=== PATIENT | female | born 1980 | race Caucasian/White ===

== ENCOUNTER 2018-08-19 10:29 | Emergency (ER) | payer SELFPAY ==
[2018-08-19 11:55] LABS: ABSOLUTE EOSINOPHILS # (AUTO) 0.1 10^3/uL (0.0-0.6); ABSOLUTE LYMPHOCYTES (AUTO) 1.8 10^3/uL (0.5-4.7); ABSOLUTE MONOCYTES (AUTO) 0.4 10^3/uL (0.1-1.4); ABSOLUTE NEUT (AUTO) 3.9 10^3/uL (1.7-8.2); APPEARANCE,URINE SLIGHTLY-CLOUDY; BASOPHILS % (AUTO) 0.4 % (0-2); BILIRUBIN,URINE NEGATIVE (NEGATIVE); COLOR,URINE YELLOW; EOSINOPHILS % (AUTO) 1.3 % (0-6); GLUCOSE, URINE NEGATIVE (NEGATIVE); HEMATOCRIT 38.1 % (36.0-47.0); HEMOGLOBIN 12.5 g/dL (12.0-15.5); KETONES,URINE NEGATIVE (NEGATIVE); LEUKOCYTE ESTERASE,URINE NEGATIVE (NEGATIVE); LYMPHOCYTES % (AUTO) 28.8 % (13-45); MEAN CORPUSCULAR HEMOGLOBIN 25.9 pg (27.0-33.4); MEAN CORPUSCULAR HGB CONC 32.9 g/dL (32.0-36.0); MEAN CORPUSCULAR VOLUME 79 fl (80-97); MONOCYTES % (AUTO) 6.1 % (3-13); NITRITE,URINE NEGATIVE (NEGATIVE); PLATELET COUNT 178 10^3/uL (150-450); PROTEIN,URINE NEGATIVE (NEGATIVE); RED BLOOD COUNT 4.84 10^6/uL (3.72-5.28); RED CELL DISTRIBUTION WIDTH 17.9 % (11.5-14.0); SEGMENTED NEUTROPHILS % (AUTO) 63.4 % (42-78); TOTAL CELLS COUNTED % (AUTO) 100 %; URINE SPECIFIC GRAVITY 1.017; UROBILINOGEN,URINE NEGATIVE mg/dL (<2.0); WHITE BLOOD COUNT 6.2 10^3/uL (4.0-10.5)
[2018-08-19] MEDS ORDERED: BENZTROPINE MESYLATE 1 MG TABLET PO ONE (12:01)
[2018-08-19 12:10] LABS: URINE AMPHETAMINES SCREEN NEGATIVE; URINE BARBITURATES SCREEN NEGATIVE; URINE BENZODIAZEPINES SCREEN NEGATIVE; URINE COCAINE SCREEN NEGATIVE; URINE MARIJUANA (THC) SCREEN UNCONFIRMED POSITIVE; URINE METHADONE SCREEN NEGATIVE; URINE PHENCYCLIDINE SCREEN NEGATIVE
[2018-08-19 12:12] LABS: ALANINE AMINOTRANSFERASE 18 U/L (9-52); ALBUMIN 4.1 g/dL (3.5-5.0); ALKALINE PHOSPHATASE 67 U/L (38-126); ANION GAP 8 (5-19); ASPARTATE AMINO TRANSFERASE 16 U/L (14-36); BILIRUBIN,DIRECT 0.1 mg/dL (0.0-0.4); BILIRUBIN,TOTAL 0.1 mg/dL (0.2-1.3); BLOOD UREA NITROGEN 11 mg/dL (7-20); CALCIUM 9.3 mg/dL (8.4-10.2); CARBON DIOXIDE 26 mmol/L (22-30); CHLORIDE 109 mmol/L (98-107); GLUCOSE 86 mg/dL (75-110); SODIUM 142.7 mmol/L (137-145); TOTAL PROTEIN 6.6 g/dL (6.3-8.2)
[2018-08-19 12:13] LABS: ACETAMINOPHEN < 10 ug/mL (10-30); ALCOHOL < 10 mg/dL (NONE DETECTED); SALICYLATE < 1.0 mg/dL (2.0-20.0)
[2018-08-19] MEDS: OLANZAPINE 5 MG TABLET PO SCH ×2 (12:17→18:16)
--- NOTE | 2018-08-19 12:31 | PSYCHOLOGICAL NOTE ---
Psych Note - Psych Note Date seen by psych provider: 08/19/18 Time seen by psych provider: 11:20 Psych Note: Reason for Consult: Suicidal and homicidal ideation; possible psychosis Patient is a 38-year-old female with a history of suicide attempts presents to the emergency department complaining of suicidal ideation and homicidal ideation. Patient states that "I feel crazy." Patient reports her [facility] because she was having suicidal and homicidal thoughts. She states is been going on for "a while." When asked for further information she reports that she has been feeling this way for a couple of months. She denies having any plans. When asked what was different today that brought her [facility] she reports that "my friend told me I should go... I do not know... she is on medicine." Patient denies having an outpatient provider currently and when asked when the last time she had a therapist her response "27 or 28." Patient reports that she went inpatient psych to the [facility] a few years back denies any more treatments since. She reports that "they put me on Haldol in the past I could not afford it." When asked if she sees or hears things that confuse her scare her clinician notes patient has significant pauses of approximately 30-45 seconds and then denies. Patient refuses to make eye contact and is seen quickly looking out of the corner of her eye towards the opposite end of the room. Patient is alert and orientated to person, place, time and circumstance. Mood is anxious with congruent affect. Patient endorses passive suicidal and homicidal ideation ie not plan, means or intent. Patient disclosed mixed delusions to attending physician and presented guarded with clinician. Thought content is linear however disorganized at time. Patient easily loses track of conversations and thoughts. Patient does not make eye contact and can be seen looking at the corner of her eye to other parts of the room. When asked about hallucinations, patient denies; however, patient is demonstrating some behaviors indicating she is responding to internal stimuli. attention and concentration is poor. Insight, judgment and impulse control is currently fair. Medication recommendations per [facility]'s contracted psychiatrist Dr. Tere GAYTAN are as follows Zyprexa 5 mg twice daily Cogentin 1 mg daily Impression\\Plan: Patient is recommended for IVC petition for overnight observation. Patient reports both passive suicidal and homicidal ideation i.e. no plans means or intent however is demonstrating some behaviors that indicate the patient is possibly responding to internal stimuli. Patient is having difficult time with organized linear conversation, does not make eye contact, is easily distracted, and appears to have some disorganized thought processes. Medication recommendations have been provided. Patient will be reevaluated. Dr. Brennan was consulted and the care management of this patient; attending physicians in agreement with recommendations and disposition.
--- NOTE | 2018-08-19 13:05 | EKG REPORT ---
SEVERITY:- NORMAL ECG - SINUS RHYTHM : Confirmed by: Flavia Ivey MD 19-Aug-2018 13:05:16
[2018-08-19] MEDS ORDERED: NICOTINE 7 MG/24 HR PATCH.TD24 TD ONE (13:23)
--- NOTE | 2018-08-19 13:25 | ER Document Report ---
Entered by KHADAR PULLIAM SCRIBE 08/19/18 1322 Acting as scribe for:FELIZ PARKS DO ED General - General Chief Complaint: Suicidal Ideation Stated Complaint: ALTERED MENTAL STATUS Time Seen by Provider: 08/19/18 10:57 Mode of Arrival: Ambulatory Information source: Patient Notes: Patient is a 38-year-old female with a history of suicide attempts presents to the emergency department complaining of suicidal ideation and homicidal ideation. Patient states that "I feel crazy" . She states that nothing is stopping her from hurting herself further stating that she cut her wrists a few days ago. She states "there is is crazy thing in my head... I do not know wh at.. it just repeats beeps the over and over, same as wires underneath the ground". She reports previously being institutionalized and being diagnosed with paranoid schizophrenia, manic depression and bipolar disorder. She states she is unsure how long she has been having thoughts of SI and HI further stating she looses track of time. She denies attempting to physically hurt someone, chest pain, nausea, vomiting, diarrhea, blurry vision, numbness or tingling sensations. She also complains of "something hanging off of my back". She reports using meth approximately 3 days ago. She is currently not on any medications. TRAVEL OUTSIDE OF THE [place] IN LAST 30 DAYS: No COUNTRY TRAVELED TO/FROM: [place] - Related Data Allergies/Adverse Reactions: No Known Allergies Allergy (Verified 08/19/18 10:57) Past Medical History - General Information source: Patient - Social History Smoking Status: Current Every Day Smoker Cigarette use (# per day): Yes Chew tobacco use (# tins/day): No Smoking Education Provided: No Frequency of alcohol use: Social Drug Abuse: Methamphetamine Family History: Reviewed & Not Pertinent Patient has suicidal ideation: Yes Patient has homicidal ideation: Yes Pulmonary Medical History: Reports: Hx Bronchitis Psychiatric Medical History: Reports: Hx Bipolar Disorder, Hx Depression, Hx Schizophrenia Past Surgical History: Reports: Hx Section - x3, Hx Tubal Ligation - Immunizations Hx Diphtheria, Pertussis, Tetanus Vaccination: Yes - 2009 Review of Systems - Review of Systems Constitutional: No symptoms reported EENT: No symptoms reported Cardiovascular: No symptoms reported Respiratory: No symptoms reported Gastrointestinal: No symptoms reported Genitourinary: No symptoms reported Female Genitourinary: No symptoms reported Musculoskeletal: No symptoms reported Skin: No symptoms reported Hematologic/Lymphatic: No symptoms reported Neurological/Psychological: See HPI, Hallucinations, Suicidal ideation -: Yes All other systems reviewed and negative Physical Exam - Vital signs Vitals: Temp Pulse Resp BP Pulse Ox 98.7 F 92 15 111/65 100 08/19/18 10:34 08/19/18 10:34 08/19/18 10:34 08/19/18 10:34 08/19/18 10:34 Interpretation: Normal - Notes Notes: GENERAL: Alert, poor eye contact but answers questions without difficulty. No acute distress. HEAD: Normocephalic, atraumatic. Head is shaved, only has a few millimeters of hair. EYES: Pupils equal, round, and reactive to light. Extraocular movements intact. ENT: Oral mucosa moist, tongue midline. NECK: Full range of motion. Supple. Trachea midline. LUNGS: Clear to auscultation bilaterally, no wheezes, rales, or rhonchi. No respiratory distress. HEART: Regular rate and rhythm. No murmurs, gallops, or rubs. ABDOMEN: Soft, non-tender. Non-distended. Bowel sounds present in all 4 quadrants. EXTREMITIES: Moves all 4 extremities spontaneously. No edema, radial and dorsalis pedis pulses 2/4 bilaterally. No cyanosis. NEUROLOGICAL: Alert and oriented x3. Normal speech. PSYCH: Flat affect, appears apprehensive, is wearing a hooded and wears the velasquez over her face, does not make eye contact well but does allow me SKIN: Warm, dry, normal turgor. No rashes or lesions noted. Scarring on the wrists is quite old and well-healed. Course - Re-evaluation Re-evalutation: 08/19/18 13:05 CBC unremarkable, CMP unremarkable, test negative, urinalysis unremarkable, drug screen shows marijuana, salicylates, acetaminophen and alcohol are all undetectable. 08/19/18 13:06 Patient is medically cleared. Patient will be put on 24-hour petition, medications including Zyprexa and Cogentin have been started as per behavioral health recommendations. No acute lesions noted in need of suturing. Scarring on her wrist is quite old and well-healed. - Vital Signs Vital signs: Temp Pulse Resp BP Pulse Ox 98.4 F 71 16 103/42 L 100 08/19/18 11:14 08/19/18 11:14 08/19/18 11:14 08/19/18 11:14 08/19/18 11:14 - Laboratory Result Diagrams: 08/19/18 11:26 08/19/18 11:26 Laboratory results interpreted by me: 08/19/18 08/19/18 11:26 11:26 MCV 79 L MCH 25.9 L RDW 17.9 H Chloride 109 H Total Bilirubin 0.1 L Salicylates < 1.0 L Acetaminophen < 10 L - EKG Interpretation by Me Additional EKG results interpreted by me: 08/19/18 13:06 EKG shows sinus rhythm at a rate of 66, normal axis, normal intervals, no ST segment elevations or depressions, isolated T wave inversions in lead III which are nonspecific per my interpretation. Discharge - Discharge Clinical Impression: Suicidal ideation, Auditory hallucinations Condition: Stable Disposition: PSYCH HOSP/UNIT Scribe Attestation: 08/19/18 13:25 I personally performed the services described in the documentation, reviewed and edited the documentation which was dictated to the scribe in my presence, and it accurately records my words and actions. I personally performed the services described in the documentation, reviewed and edited the documentation which was dictated to the scribe in my presence, and it accurately records my words and actions.
--- NOTE | 2018-08-20 08:40 | PSYCHOLOGICAL NOTE ---
Psych Note - Psych Note Date seen by psych provider: 08/20/18 Time seen by psych provider: 07:45 Psych Note: Reason for consult: 1st reevaluation SI, HI, AV/H Contact Permissions: Nitin Patient is a 38-year-old presenting to the ED for concerns of SI, HI and psychosis. Chart review shows patient does have a hx of suicide attempts and psychosis. Patient "I was going crazy hearing and seeing stuff". Patient denies SI, HI "not right now" but does admit to continued AV/H and does appear to still be responding to internal stimuli aeb long pauses before responding, minimal eye contact, and patient's eyes dart to the side several times. Patient reports that she felt "like I was going crazy" and explains that "I was seeing and hearing a bunch of stuff" with onset one month ago. Patient then admits this has been going on "for years". She admits using methamphetamine 3 or more days ago and occasional THC use and was positive for same. Haldol and Cogentin have worked in the past to remit her psychosis but she cannot afford medication as she does not have Medicaid so uses street drugs which she admits "makes it worse". Then complains, "when I'm sober I still see shit so what does it matter anyway". She chanell by sleeping relaying thst she gets "pissed and goes to sleep/I just get tired of the voices and their opinions". She reports benefit from current medication regimen of Zyprexa and Cogentin "It slowed everything down so I can sleep" specifying thoughts racing and psychosis. Patient lives alone in a house that she inherited/is unable to work in her current state/does not drive and walks to the grocery which she pays for with food stamps. Patient is alert and oriented x 4. Mood is euthymic with congruent affect. Patient denies SI, HI, and endorses AV/H and demonstrates behaviors indicating AV/H aeb long pauses before responding, has shaved her head, makes minimal eye contact, patient's eyes dart to the side several times. No delusions were noted. Conversational speech was minimal and pressured almost incoherent. Eye contact was poorly maintained. Thought processes were were rational. Intellectual abilities were estimated within the average range. Attention/concentration was WNL while, insight, judgment, and impulse control were poor. Diagnosis: paranoid schizophrenia manic depression bipolar disorder. Medication recommendations as per psychiatric provider, Dr. Carranza are as follows: Zyprexa 5 mg twice daily Cogentin 1 mg daily Impression/Plan: Patient is recommended to remain under IVC for risk of harm to self and others aeb patient is demonstrating behaviors indicative of responding to internal stimuli and does endorse same. Patient is a 38-year-old female diagnosed with paranoid schizophrenia, manic depression, and bipolar disorder who is presenting with behaviors consistent with psychosis. Plan is for patient to hold overnight for further observation and evaluation and continue to stabilize on medication. Behavioral Health is requesting assistance for discharge planning for Medicaid application and process as patient certainly meets criteria for disability and would be able to maintain and be able to function with continuous psychiatric medication. Consulted Dr. Brennan in the care and treatment of this patient and ED physician who is in agreement with disposition and recommendation.
[2018-08-20] MEDS: OLANZAPINE 5 MG TABLET PO SCH ×2 (10:52→18:20)
--- NOTE | 2018-08-20 20:15 | ER Document Report ---
Doctor's Note Notes: 08/20/18 20:15 Patient is hemodynamically stable. Vital signs have been stable. Her labs have been stable. She is comfortable at this time. She has bipolar affective disorder. The problem is she has no outside resources. We will continue to monitor her and will continue the Zyprexa and Cogentin.
[2018-08-21] MEDS: OLANZAPINE 5 MG TABLET PO SCH (09:35)
[2018-08-21] MEDS ORDERED: ACETAMINOPHEN 325 MG TABLET ONE (10:32)
[2018-08-21] MEDS ORDERED: ACETAMINOPHEN 325 MG TABLET PO ONE (10:35)
[2018-08-21 10:47] VITALS: BP 90/54
--- NOTE | 2018-08-21 11:24 | ER Document Report ---
Doctor's Note Notes: 08/21/18 11:23 Rounds: Chart reviewed and patient interviewed. Patient is being evaluated for suicidal ideation with underlying bipolar disorder. Vital signs were normal except for a blood pressure of 90/54, but patient is small stature. Lab studies were all negative except for being positive for marijuana on her drug screen. Patient appears to be medically stable for transfer or discharge. Fercho Sanchez MD
--- NOTE | 2018-08-23 12:53 | PSYCHOLOGICAL NOTE ---
Psych Note - Psych Note Date seen by psych provider: 08/21/18 Time seen by psych provider: 08:00 Psych Note: Reason for consult: SI, AV/H Contact Permissions: Yesika [phone], Patient is awake upon arrival and is smiling. She relays her mood is "steady/I feel alright". She denies any adverse effects from medication and says "it helps". Patient explains that she has been cycling for about 6 months/since her boyfriend went to detention and that it has been getting progressively worse. She endorses Yesika as a support and relays that she is "anti-drug". Patient relays she is tired of cycling and wants to stay on medication/get a doctor/get Medicaid. Patient is alert and oriented x 4. Mood is euthymic with congruent affect aeb patient is smiling. Patient denies SI, HI, and AV/H, does not appear to be responding to internal stimuli, and no delusions were noted. Conversational speech was WNL for rate, tone, and prosody. Eye contact was well maintained. Thought processes were linear, organized, and rational. Intellectual abilities were estimated within the average range. Attention/concentration was WNL while, insight, judgment, and impulse control were good. Diagnosis: paranoid schizophrenia manic depression bipolar disorder. Medication recommendations as per psychiatric provider, Dr. Carranza are as follows: Zyprexa 5 mg twice daily Cogentin 1 mg daily Impression/Plan: Patient is psychiatrically clear from acute psychiatric services as there is no risk of harm to self or others aeb patient denies SI, HI, and AV/H, does not appear to be responding to internal stimuli, and no delusions are noted. Patient is a 38-year-old female diagnosed with paranoid schizophrenia, manic depression, and bipolar disorder who is presented to the ED with behaviors consistent with psychosis and needed psychiatric stabilization as she has not been on psychotropic medication for a period of time. Medications were given and patient's sx's remitted. She is recommended to maintain treatment compliance and was provided a script and soft handoff to [facility] for continued care. She verbalized that she would do so. Patient discharged to her friend and neighbor who will assist patient in picking up her medication today and future appointments. Patient was provided with contact information for DSS and verbalized her intent to apply for Medicaid. Consulted Dr. Brennan in the care and treatment of this patient and ED physician who is in agreement with disposition and recommendation.
== END 2018-08-21 13:01 | disposition home or self-care (01) ==
LOC: ER 10:29
DX: R45.851 Suicidal ideations (principal); R44.0 Auditory hallucinations; R41.82 Altered mental status, unspecified; Z91.5 Personal history of self-harm; F17.200 Nicotine dependence, unspecified, uncomplicated
CPT/HCPCS: 93005; 99285; 36415; 80307 ×4; 84703; 85025; 80053; 81001; 93010; J3490

== ENCOUNTER 2020-03-06 21:14 | Emergency (ER) | payer SELFPAY ==
[2020-03-06 21:30] VITALS: BP 113/71
--- NOTE | 2020-03-06 23:07 | RADIOLOGY REPORT (SQ) ---
EXAM DESCRIPTION: XR FOOT 3 OR MORE VIEWS COMPLETED DATE/TME: 03/06/2020 22:28 CLINICAL HISTORY: 39 years, Female, injury 1 month ago COMPARISON: 12/20/2011 right foot NUMBER OF VIEWS: 3 TECHNIQUE: 3 views right foot LIMITATIONS: None. FINDINGS: Negative for acute fracture or dislocation. Chronic changes to the fifth MTP joint, similar to the prior. Soft tissues are unremarkable IMPRESSION: No acute osseous abnormality copyright 2010 [employer], [place]- All Rights Reserved
--- NOTE | 2020-03-06 23:10 | ER Document Report ---
HPI - HPI Time Seen by Provider: 03/06/20 22:21 Pain Level: 4 Notes: 31-year-old female patient presents emergency department chief complaint of right foot pain. Patient reports she injured her foot about 1 month ago, she states she was seen at [facility] where she states they did "nothing" and told her to get out. Patient believes that she has a fracture in her foot and and that the fracture is causing an infection. She denies any fever or chills, nausea, vomiting. She does have what appears to be track cao to both of her feet and legs. She denies any IV drug use. She will not make eye contact. She denies any suicidal, homicidal ideations and states that she feels safe at home. - ROS Systems Reviewed and Negative: Yes All other systems reviewed and negative - REPRODUCTIVE Reproductive: DENIES: : - MUSCULOSKELETAL Musculoskeletal: REPORTS: Extremity pain Past Medical History - General Information source: Patient - Social History Smoking Status: Current Every Day Smoker Chew tobacco use (# tins/day): No Frequency of alcohol use: None Drug Abuse: None Family History: Reviewed & Not Pertinent Pulmonary Medical History: Reports: Hx Bronchitis Renal/ Medical History: Denies: Hx Peritoneal Dialysis Psychiatric Medical History: Reports: Hx Bipolar Disorder, Hx Depression, Hx Schizophrenia Past Surgical History: Reports: Hx Section - x3, Hx Tubal Ligation - Immunizations Hx Diphtheria, Pertussis, Tetanus Vaccination: Yes - 2009 Vertical Provider Document - CONSTITUTIONAL Notes: PHYSICAL EXAMINATION: GENERAL: Well-appearing, well-nourished and in no acute distress. HEAD: Atraumatic, normocephalic. EYES: Pupils equal round extraocular movements intact, conjunctiva are normal. ENT: Nares patent NECK: Normal range of motion LUNGS: No respiratory distress Musculoskeletal: Normal range of motion, no swelling, erythema or ecchymosis noted to right foot, strong dorsalis pedis pulse, cap refill less than 3 seconds. Patient ambulating without difficulty. NEUROLOGICAL: Normal speech, normal gait. PSYCH: Normal mood, normal affect. SKIN: Warm, Dry, normal turgor, no rashes or lesions noted. - INFECTION CONTROL TRAVEL OUTSIDE OF THE [place] IN LAST 30 DAYS: No Course - Re-evaluation Re-evalutation: No abnormality noted on x-ray. Patient will be discharged home at this time. - Vital Signs Vital signs: Temp Pulse Resp BP Pulse Ox 98.2 F 82 18 113/71 98 03/06/20 21:24 03/06/20 21:24 03/06/20 21:24 03/06/20 21:24 03/06/20 21:24 Discharge - Discharge Clinical Impression: Right foot pain Condition: Stable Disposition: HOME, SELF-CARE Additional Instructions: The x-ray shows no fracture, dislocation or any other abnormality in your foot. Please take Tylenol or ibuprofen if you continue to have pain. Try to wear supportive shoes. [facility] for any [facility]. Their phone number is on page 2.
== END 2020-03-06 23:25 | disposition home or self-care (01) ==
LOC: ER 21:14
DX: M79.671 Pain in right foot (principal); R58 Hemorrhage, not elsewhere classified; L53.9 Erythematous condition, unspecified; F17.200 Nicotine dependence, unspecified, uncomplicated
CPT/HCPCS: 99283